=== PATIENT | female | born 1995 | race Caucasian/White ===

== ENCOUNTER 2021-07-11 16:49 | Emergency (ER) | payer BC ==
[~2021-07-11] VITALS: Ht 177.8 cm; Wt 63.0 kg
[~2021-07-11 16:49] MED LIST: FLUOXETINE HCL40 MG PO; ZOFRAN ODT4 MG PO
[2021-07-11 17:46] LABS: HEMATOCRIT 42.1 % (37.0-47.0); HEMOGLOBIN 14.2 gm/dL (12.0-15.0); MCH 30.8 pg (26.0-34.0); MCHC 33.7 g/dL (28.0-37.0); MCV 91.3 fL (80.0-100.0); RBC 4.61 mil/uL (4.20-5.00); RDW 12.9 % (10.5-14.5); WBC 10.5 thou/uL (4.0-11.0)
[2021-07-11 17:55] LABS: ANION GAP 9 mmol/L (7-16); BUN 14 mg/dL (7-18); CALCIUM 9.3 mg/dL (8.5-10.1); CHLORIDE 106 mmol/L (98-107); CO2 24 mmol/L (21-32); CREATININE 0.9 mg/dL (0.6-1.0); GLUCOSE 98 mg/dL (74-106); POTASSIUM 4.1 mmol/L (3.5-5.1); SODIUM 139 mmol/L (136-145)
[2021-07-11 18:05] LABS: ALBUMIN 4.7 g/dL (3.4-5.0); SGOT 18 U/L (15-37); SGPT 17 U/L (14-59); TOTAL BILIRUBIN 0.6 mg/dL (0.2-1.0); TOTAL PROTEIN 8.1 g/dL (6.4-8.2)
[2021-07-11 18:51] LABS: URINE BILIRUBIN NEGATIVE (Negative); URINE BLOOD NEGATIVE (Negative); URINE CLARITY CLEAR; URINE COLOR YELLOW; URINE GLUCOSE-RANDOM* NEGATIVE (Negative); URINE KETONES NEGATIVE (Negative); URINE LEUKOCYTES-REFLEX NEGATIVE (Negative); URINE NITRITE-REFLEX NEGATIVE (Negative); URINE PROTEIN (DIPSTICK) NEGATIVE (Negative); URINE SPECIFIC GRAVITY <= 1.005 (1.005-1.035); URINE UROBILINOGEN 0.2 E.U./dl (0.2-1.0)
[2021-07-11 21:14] VITALS: BP 91/45
--- NOTE | 2021-07-12 07:17 | EKG ---
[place] [address] [employer] [facility] [place] [address] ELECTROCARDIOGRAM REPORT Name: SOMMERSSHELLIAlanna HOFFMAN Room #: [facility]P [facility]ENTERFarhan#: [id number] Admission: 07/11/21 Attend Phys: Discharge: 07/11/21 Date of : [birth year] Report #: [id number] [facility] ED Test Date: 2021-07-11 Test Time: 17:56:37 Pat Name: SHELLI SOMMERS Department: Room: Gender: F Turn Out: CORTNEY : 1995 Requested By: Shahana Barrera Order Number: [id number] MD: Anuj Mcdonald Measurements Intervals Vaughn Rate: 101 P: 81 CA: 128 QRS: 39 QRSD: 88 T: 28 QT: 330 QTc: 428 Interpretive Statements Sinus tachycardia RSR' in V1 or V2, probably normal variant No previous ECG available for comparison Electronically Signed On 07-12-2021 7:17:36 [employer]PAIGN CONSULTANT by Anuj Mcdonald [email or web address] <ELECTRONICALLY SIGNED> By: Anuj Mcdonald MD, [facility] 07/12/21 0717 1756 1756 Anuj Mcdonald MD, FACC /EPI
== END 2021-07-11 21:15 | disposition home or self-care (01) ==
LOC: ER 16:49
PROVIDERS: Nurse Practitioner Family
DX: R07.89 Other chest pain (principal); N94.6 Dysmenorrhea, unspecified; R11.0 Nausea; F41.9 Anxiety disorder, unspecified; F32.9 Major depressive disorder, single episode, unspecified; F12.90 Cannabis use, unspecified, uncomplicated; Z79.899 Other long term (current) drug therapy; Z88.2 Allergy status to sulfonamides